=== PATIENT | female | born 1995 | race Caucasian/White ===

== ENCOUNTER 2020-05-07 10:40 | Emergency (ER) | payer OTHER, SELFPAY ==
[2020-05-07] VITALS (9 sets, daily range): BP systolic 114–141; BP diastolic 80–98; PULSE 115–137; RESP 15–25; TEMP 38.3; O2SAT 95–100; BMI 32.2
--- NOTE | 2020-05-07 11:05 | ED.DCSUM_ITS ---
History of Present Illness Chief Complaint: Other, Pain/Inj Informant: Patient Onset: Days Context: Sudden Onset Timing: Continuous Quality: Throat pain x4 days Location: Predominately left Current Severity: Moderate Maximum Severity: Moderate Worsened by: Nothing Relieved by: Nothing Associated Symptoms: Muffled voice and severe pain with swallowing Narrative: Patient is a 24-year-old female with no significant past medical history was sent from urgent care because of swollen left tonsil. Symptoms started 3 to 4 days ago. She denies fever. She denies headache. She does report difficulty opening her mouth completely. She reports no drooling. She able to swallow liquids, but she reports significant discomfort. She has no history medic fever, heart murmur, SBE or being immune suppressed. She is a college student. Spoke with her grandmother and father who reside in [place]. Father is coming to the emergency department. Grandmother was informed what her exam revealed and what the treatment is. Patient denies cardiac, respiratory, GI or symptoms. Patient denies rash. Prior similar symptoms: No Recent Illness/Hospitalization: No - Past Medical History (1) No significant past medical history Status: Acute Past Medical History - Allergies and Home Meds Allergies/Adverse Reactions: Allergies No Known Allergies Allergy (Verified 05/07/20 10:40) Primary Care Physician: Cornelio Arizmendi MD [STAFF PHYSICIAN] - 5-7 Days NOT,DEFINED [Primary Care Provider] - Lives: With Family Smoking Status: Never smoker Alcohol: Occasional Drugs: None Review of Systems General: Denies: Chills, Fever, Subjective, Sweats Eyes: Denies: Visual changes - bilaterally, Diplopia ENT: Reports: Sore throat, - - Voice, pain with swallowing without drooling Cardiovascular: Denies: Chest pain, Palpitations Respiratory: Denies: Dyspnea, Cough, Dyspnea on exertion Gastrointestinal: Denies: Abdominal pain, Nausea, Vomiting, Diarrhea, Melena, Hematochezia Genitourinary: Denies: Dysuria, Hematuria, Frequency Musculoskeletal: Denies: Myalgias, Arthralgias, Neck pain, Back pain, Swelling, Extremity Pain Skin: Denies: Rash, Wounds Neurological: Denies: Headache, Weakness, Numbness Endocrine: Denies: Polyuria, Polydipsia Hematologic: Denies: Easy bruising, Easy bleeding Allergy: Denies: Swelling of the mouth, Swelling of the tongue Physical Exam Vital Signs/Narrative: Vital Signs Temp Pulse Resp BP Pulse Ox 05/07/20 10:40 101.0 F H 137 H 16 139/87 H 95 Inital Vital Signs reviewed: Yes - Reports she had eaten last at 0200. She has had nothing to drink since 020 General: Well nourished, Well developed, Obese, No Acute Distress Head: Normocephalic, Atraumatic Eyes: Perrl, EOMI. Negative for: Pale conjunctiva, Scleral icterus ENT: Moist mucous membranes, No rhinorrhea, TM's clear, - - There is evidence of a left peritonsillar abscess. Patient does have trismus. Neck: Supple, No JVD, - - There is no inspiratory expiratory stridor.. Negative for: Nontender, No lymphadenopathy Cardiovascular: Regular rhythm, No murmurs, Normal S1, Normal S2, Tachycardia Respiratory: No distress, CTA bilaterally, Chest nontender Abdomen: Soft, Nontender, Nondistended, Normal bowel sounds Extremities: Nontender, No edema Skin: Normal color, No rash, No Trauma. Negative for: Cyanosis, Diaphoresis, Jaundice Neurological: Alert, Oriented x3, Cranial nerves II-XII grossly intact, Normal Strength, Normal Sensation Psychological: Normal affect Diagnostic/Tx/Re-eval Laboratory Results 05/07/20 05/07/20 11:25 11:25 WBC 19.5 H RBC 4.23 Hgb 12.7 Hct 39.0 MCV 92.2 MCH 30.0 MCHC 32.6 RDW Std Deviation 42.7 RDW Coeff of Ricardo 12.6 Plt Count 310 MPV 10.1 Immature Gran % (Auto) 0.700 Neut % (Auto) 83.9 H Lymph % (Auto) 5.6 L Churchill % (Auto) 9.4 Eos % (Auto) 0.1 Baso % (Auto) 0.3 Absolute Neuts (auto) 16.4 H Absolute Lymphs (auto) 1.09 Nucleated RBC % 0 Differential Comment SCANNED Diff Path Review May foll Sodium 139 Potassium 4.0 Chloride 107 Carbon Dioxide 24.0 Anion Gap 8 BUN 9 Creatinine 0.98 Estim Creat Clear Calc 77.76 Est GFR (MDRD) Af Amer 90 Est GFR (MDRD) Non-Af 75 BUN/Creatinine Ratio 9.2 L Glucose 113 H Calcium 9.1 - Medical Decision Making Patient has findings consistent with left peritonsillar abscess. There is no concern for epiglottitis, supraglottic swelling, retropharyngeal or parapharyngeal abscess. Patient was explained what needs to be done. She was treated with IV antibiotics. She was made NPO. Consent was obtained for sedation and needle aspiration of left peritonsillar abscess. Monitor reveals a sinus tachycardia rate of 130 with no ectopy. Patient was informed of findings. Patient was informed of benefits of needle aspiration of peritonsillar abscess and risk benefits of conscious sedation versus deep sedation. She preferred deep sedation. Discussed case with her grandmother. Grandmother informed her father who is on his way to the hospital. Patient denies allergy to soy products or egg products. Patient denies complications with prior sedation. She however denies past surgical history. Time spent explaining procedure, treatment to patient and grandmother 12 minutes. Case was discussed with Dr. Cornelio Arizmendi who is on-call for ENT. Patient to follow-up in 5 to 7 days. She was prescribed Augmentin. Procedures Procedure(s): 1. Conscious sedation using propofol. 2. Needle aspiration of left peritonsillar abscess. Patient received a total of 80 mg of propofol. Monitor reveals sinus tachycardia of 115. Patient was able to control secretions and her gag reflex was suppressed. The propofol was administered by me. 3 cc of purulent material was aspirated from the peritonsillar abscess. Patient tolerated procedure well. Monitor reveals a sinus tachycardia at the end of procedure. Total time was 5 minutes. Send fluid for culture. ED Disposition - Plan for ED Patient: Disposition: Home or Assisted Living Diagnosis: Peritonsillar abscess, Sepsis Instructions: ED Peritonsillar Abscess Prescriptions: Amox/Clavulanate Tablet [Augmentin Tablet] 875 mg PO Q12H #14 tab Prescription Printed Referrals: NOT,DEFINED [Primary Care Provider] - Cornelio Arizmendi MD [STAFF PHYSICIAN] - 5-7 Days
[2020-05-07] MEDS: Lidocaine 4% 5 ML Ampul 2 ML INHALATION (11:35)
[2020-05-07] MEDS: Propofol 200 MG/20 ML Vial IV BOLUS (11:36)
[2020-05-07 11:40] LABS: Absolute Lymphocyte Count 1.09 X10^3/uL (0.83-4.51); Absolute Neutrophil Count 16.4 X10^3/uL (2.0-7.7); Basophil# 0.05 X10^3/uL; Basophil% 0.3 % (0-1); Eosinophil# 0.01 X10^3/uL; Eosinophils% 0.1 % (0-5); Hemoglobin 12.7 g/dL (12.0-15.0); Lymphocyte # 1.09 X10^3/ul (4.0); Lymphocyte % 5.6 % (19-41); Mean Corp Hgb Conc 32.6 g/dL (32-36); Mean Corpuscular Volume 92.2 fL (81-99); Mean Platelet Vol. 10.1 fl (6.2-12.0); Monocyte# 1.84 X10^3/uL; Monocyte% 9.4 % (0-10); NRBC Flagged by Analyzer 0 % (0-5); Neutrophil # 16.37 X10^3/uL (2.7-7.7); Neutrophil % 83.9 % (47-70); POSITIVE DIFFERENTIAL YES; Platelet Count 310 K/mm3 (150-450); RBC Distribution Width CV 12.6 % (11.6-14.6); RBC Distribution Width SD 42.7 fl (35.1-43.9); Red Blood Count 4.23 M/mm3 (4.2-5.4); White Blood Count 19.5 K/mm3 (4.4-11.0)
[2020-05-07 11:45] LABS: Differential Indicated SCAN CRITERIA MET
[2020-05-07 11:55] LABS: Anion Gap 8 (5-15); BUN 9 mg/dL (7-18); BUN/Creat Ratio 9.2 RATIO (10-20); Calcium,Total 9.1 mg/dL (8.5-10.1); Chloride 107 mmol/L (98-107); Creatinine, Serum 0.98 mg/dL (0.55-1.02); EST Glomerular Filtration Rate 75 mL/min (>60); Est Glom Filt Rate - Afr Amer 90 mL/min (>60); Estimated Creatinine Clearance 77.76 ml/min; Glucose 113 mg/dL (74-106); Sodium Level 139 mmol/L (136-145)
[2020-05-07 12:05] LABS: Differential Comment SCANNED
[2020-05-08 14:14] LABS: Pathologist Review Reviewed
== END 2020-05-07 13:01 | disposition home or self-care (01) ==
LOC: ED 12:51
PROVIDERS: Emergency Provider Emergency Medicine
DX: J36 Peritonsillar abscess (principal); A41.9 Sepsis, unspecified organism; E66.9 Obesity, unspecified
CPT/HCPCS: 10021; 10060; 80048; 85025; 87070; 87077; 87186; 87205; 94640; 96365; 99285; J7030; A4216; J0295